=== PATIENT | female | born 1985 | race Caucasian/White ===

== ENCOUNTER 2022-12-08 16:53 | Emergency (ER) | payer OTHER, MEDICAID, SELFPAY ==
[2022-12-08 17:02] VITALS: BP 116/78; PULSE 75; RESP 16; TEMP 36.7; O2SAT 98; BMI 31.9
--- NOTE | 2022-12-08 17:13 | ED_ITS ---
HPI - Female Genitourinary General Chief complaint: Urogenital-Female Stated complaint: UTI Time Seen by Provider: 12/08/22 17:05 Source: patient Mode of arrival: walk-in Limitations: no limitations History of Present Illness HPI Narrative: dysuria began earlier today and the patient is concerned that she might be having an acute UTI. She denied any abdominal pain but had some pain across both flanks that also began today. She complains of feeling tired . No fever or chills. No vomiting or diarrhea. Related Data Home Medications Medication Instructions Recorded Confirmed fluoxetine 40 mg capsule (Prozac) mg 12/08/22 lamotrigine 25 mg tablet mg 12/08/22 Previous Rx's Medication Instructions Recorded ciprofloxacin HCl 500 mg tablet 500 mg PO BID #10 tabs 12/08/22 (Cipro) phenazopyridine 100 mg tablet 100 mg PO TID 6 doses #6 tabs 12/08/22 (Pyridium) Allergies Allergy/AdvReac Type Severity Reaction Status Date / Time No Known Drug Allergies Allergy Verified 12/08/22 17:05 [facility] Social History Smoking status: Never smoker Exam Narrative Exam Narrative: Nurses notes and vital signs reviewed and patient is not hypoxic. afebrile General: Well-appearing and in no apparent distress. Skin: Warm, dry, no pallor noted. No rash. Eye: Pupils are equal, round and EOMI. No scleral icterus. Cardiovascular: Regular Rate and Rhythm without murmur, gallop or rub. Respiratory: No accessory muscle use or respiratory distress. Lungs are clear to auscultation, no wheezing, rales or rhonchi Back: No midline thoracic or lumbar vertebral tenderness. No CVA tenderness GI: Abdomen is soft, non-distended. Normal bowel sounds. No tenderness to palpation. No rebound, guarding, or rigidity noted. Neurological: A&O x4. No cranial nerve dysfunction observed. No truncal ataxia. Moves all extremities. Sensation intact. Psychiatric: Cooperative and interactive. Normal mood and affect. Constitutional Vital Signs - 24 hr 12/08/22 17:02 Temperature 98.0 F Pulse Rate [Monitor] 75 Respiratory Rate 16 Blood Pressure [Right Arm] 116/78 Pulse Oximetry 98 Oxygen Delivery Method Room Air Course Vital Signs Vital signs: Vital Signs Temperature 98.0 F 12/08/22 17:02 Pulse Rate 75 12/08/22 17:02 Respiratory Rate 16 12/08/22 17:02 Blood Pressure 116/78 12/08/22 17:02 Pulse Oximetry 98 12/08/22 17:02 Oxygen Delivery Method Room Air 12/08/22 17:02 Temperature 98.0 F 12/08/22 17:02 Pulse Rate 75 12/08/22 17:02 Respiratory Rate 16 12/08/22 17:02 Blood Pressure 116/78 12/08/22 17:02 Pulse Oximetry 98 12/08/22 17:02 Oxygen Delivery Method Room Air 12/08/22 17:02 MDM - Female Genitourinary MDM Narrative Medical decision making narrative: urine sent for testing. UA revealed acute UTI. Patient placed on cipro and pyridium and encouraged to see her PCP for follow up. Lab Data Attestation: I reviewed the patient's lab results. Labs: Lab Results 12/08/22 Range/Units 17:12 Urine Color Lt. yellow (YELLOW) Urine Clarity Clear (CLEAR) Urine pH 7.0 (5.0-9.0) Ur Specific [place] 1.010 (1.005-1.025) Urine Protein Negative (NEG/TRACE) mg/dL Urine Glucose (UA) Negative (NEGATIVE) mg/dL Urine Ketones Negative (NEGATIVE) mg/dL Urine Occult Blood Negative (NEGATIVE) Urine Nitrite Negative (NEGATIVE) Urine Bilirubin Negative (NEGATIVE) Urine Urobilinogen 0.2 (0.2-1.0) EU/dL Ur Leukocyte Esterase Small A (NEGATIVE) Urine RBC 0-2 (0-2) #/HPF Urine WBC 2-5 A (NONE SEEN) #/HPF Ur Squamous Epith Cells Rare (NONE/RARE) #/LPF Urine Crystals None seen (None Seen) #/HPF Urine Bacteria Trace A (NONE SEEN) #/HPF Urine Casts None seen (NONE SEEN) #/LPF Urine Mucus None seen (NONE SEEN) Ur Culture Indicated? No Urine HCG, Qual Negative (NEGATIVE) Discharge Plan Discharge Chief Complaint: Urogenital-Female Clinical Impression: Urinary tract infection Patient Disposition: Home, Self-Care Time of Disposition Decision: 18:00 Prescriptions / Home Meds: New ciprofloxacin HCl [Cipro] 500 mg tablet 500 mg PO BID Qty: 10 0RF phenazopyridine [Pyridium] 100 mg tablet 100 mg PO TID Qty: 6 0RF No Action fluoxetine [Prozac] 40 mg capsule lamotrigine 25 mg tablet Instructions: Urinary Tract Infection in Women (ED) Stand Alone Forms: Portal Instructions Referrals: KEYONA SERRATO [Primary Care Provider] - 1 week
[2022-12-08 17:23] LABS: Bilirubin Urine NEGATIVE (NEGATIVE); Blood Urine NEGATIVE (NEGATIVE); Clarity Urine CLEAR (CLEAR); Color Urine LT. YELLOW (YELLOW); Glucose Urine UA NEGATIVE (NEGATIVE); Ketones Urine NEGATIVE (NEGATIVE); Leukocyte Esterase Urine SMALL (NEGATIVE); Nitrite Urine NEGATIVE (NEGATIVE); Protein Urine NEGATIVE (NEG/TRACE); Urobilinogen Urine 0.2 EU/dL (0.2-1.0)
[2022-12-08 17:25] LABS: HCG Qualitative Urine* NEGATIVE (NEGATIVE)
[2022-12-08 17:26] LABS: Urine Microscopic Indicated YES
[2022-12-08 17:34] LABS: Bacteria Urine TRACE #/HPF (NONE SEEN); Crystals Seen? None Seen #/HPF (None Seen); Mucus Urine NONE SEEN (NONE SEEN); RBC Urine 0-2 #/HPF (0-2); Squamous Epithelial Cell Urine RARE #/LPF (NONE/RARE)
[2022-12-08 17:35] LABS: Cast Seen? NONE SEEN #/LPF (NONE SEEN); Urine Culture Indicated NO
[2022-12-08 18:24] VITALS: BP 110/78; PULSE 75; RESP 16; O2SAT 100
== END 2022-12-08 18:24 | disposition home or self-care (01) ==
PROVIDERS: Emergency Provider Emergency Medicine; PCP Nurse Practitioner Family
DX: N39.0 Urinary tract infection, site not specified (principal)
CPT/HCPCS: 81003; 81015; 84703; 99283

== ENCOUNTER 2023-09-21 09:24 | Outpatient (OUT) | payer OTHER, MEDICAID, SELFPAY ==
[2023-09-21 09:52] LABS: Basophils Percent Auto 0.4 % (0.2-2.0); Eosinophils Absolute Auto 0.1 10^3/uL (0.0-0.7); Eosinophils Percent Auto 1.4 % (0.9-7.0); Hematocrit 43.4 % (36.0-48.0); Hemoglobin 14.3 g/dL (12.0-16.0); Immature Granulocytes Abs Auto 0.03 10^3/uL (0.00-0.03); Immature Granulocytes Pct Auto 0.4 % (0.0-0.5); Lymphocytes Percent Auto 12.9 % (20.5-60.0); Mean Corpuscular HGB Conc 32.9 g/dL (29.9-35.2); Mean Corpuscular Hemoglobin 29.2 pg (26.7-34.0); Mean Corpuscular Volume 88.8 fL (81.0-99.0); Mean Platelet Volume 11.5 fL (9.5-13.5); Monocytes Absolute Auto 0.9 10^3/uL (0.3-0.8); Monocytes Percent Auto 10.8 % (1.7-12.0); Neutrophils Absolute Auto 5.9 10^3/uL (1.4-6.5); Neutrophils Percent Auto 74.1 % (43.0-75.0); Platelet Count 241 10^3/uL (150-450); Red Blood Count 4.89 10^6/uL (4.20-5.40); Red Cell Distribution Width 11.8 % (11.0-15.0)
[2023-09-21 10:29] LABS: Estimated Average Glucose 100 mg/dL; Glycohemoglobin A1C 5.1 % (4.5-6.2)
[2023-09-21 10:53] LABS: Alanine Aminotransferase 42 U/L (14-59); Albumin Globulin Ratio 0.9; Albumin Level 3.6 g/dL (3.4-5.0); Alkaline Phosphatase 92 U/L (46-116); Anion Gap 11.3; Aspartate Amino Transferase 19 U/L (15-37); BUN Creatinine Ratio 17.1; Bilirubin Total 0.6 mg/dL (0.2-1.0); Calcium 8.9 mg/dL (8.5-10.1); Carbon Dioxide 27.6 mmol/L (21.0-32.0); Chloride 103 mmol/L (98-107); Chol HDL Ratio 4.6; Cholesterol 169 mg/dL (<=200); Estimated GFR (African America >60 (>=60); Estimated GFR (Non-African Ame >60 (>=60); Free T3 2.82 pg/mL (2.18-3.98); Glucose 96 mg/dL (74-106); HDL Cholesterol 37 mg/dL (40-60); Potassium 3.9 mmol/L (3.5-5.1); Sodium 138 mmol/L (136-145); Thyroid Stimulating Hormone 3.245 uIU/mL (0.358-3.740); Total Protein 7.6 g/dL (6.4-8.2); Triglycerides 100 mg/dL (<=150)
[2023-09-22 10:08] LABS: Insulin 18.2 uIU/mL (2.6-24.9)
== END 2023-09-21 09:25 | disposition home or self-care (01) ==
LOC: LAB 09:27
PROVIDERS: PCP Nurse Practitioner Family; Visit Provider Nurse Practitioner Family
DX: Z00.00 Encounter for general adult medical examination without abnormal findings (principal)
CPT/HCPCS: 36415; 80053; 80061; 82306; 83036; 83525; 83540; 84436; 84443; 84481; 85025

== ENCOUNTER 2023-09-27 11:15 | Emergency (ER) | payer MEDICAID, SELFPAY ==
[2023-09-27 11:22] VITALS: BP 139/80; PULSE 82; TEMP 36.7; O2SAT 98; BMI 33.9
--- NOTE | 2023-09-27 11:32 | XR_ITS ---
[facility] [id number] Patient Name: KM WAITE MRN: [id number] date: 1985 Sex: F Assigned Patient Location: ER Current Patient Location: ER Accession/Order Number: [id number] Exam Date: 09/27/2023 12:08 Report Date: 09/27/2023 12:19 At the request of: YANELI LINDSEY Procedure: XR chest 1V EXAM: XR chest 1V at 1203 hours HISTORY: CP COMPARISON: None. TECHNIQUE: AP upright portable chest x-ray FINDINGS: The heart is not enlarged and the vasculature is not distended. No acute infiltrate, effusion or pneumothorax is identified. The osseous structures are grossly intact. XR/XR chest 1V IMPRESSION: No acute infiltrate or evidence of cardiac decompensation. Comparison with a previous study may be helpful in confirming the chronicity of these findings. Electronically authenticated by: HOMERO TAVERAS Date: 09/27/2023 12:19
--- NOTE | 2023-09-27 11:32 | ECG_ITS ---
[facility] Test Date: 2023-09-27 Pat Name: KM WAITE Department: Room: - Gender: Female Dental Technician: : 1985 Requested By: KEYONA SERRATO Order Number: [id number] Reading MD: FELIPE MELARA Measurements Intervals [place] Rate: 86 P: 270 VT: 166 QRS: 67 QRSD: 74 T: 21 QT: 372 QTc: 415 Interpretive Statements 1220 Rapid atrial rhythm 9140 abnormal rhythm ECG No previous ECG available for comparison Electronically Signed On 09-27-2023 23:20:51 EDT by FELIPE MELARA
--- NOTE | 2023-09-27 11:32 | ED.CHESTPAI1 ---
HPI - Chest Pain General Chief Complaint: Chest Pain Stated Complaint: CHEST PAIN Time Seen by Provider: 09/27/23 11:24 Source: patient Mode of arrival: walk-in Limitations: no limitations History of Present Illness HPI narrative: 38-year-old female presents for chest pain. She states she has had this continuously for 4 days and it is in the middle part of her chest. She has been under a great deal of stress recently. No injury or unusual activity. No fever cough or back pain and the pain does not seem to radiate. The pain is moderate. Related Data Allergies Allergy/AdvReac Type Severity Reaction Status Date / Time No Known Drug Allergies Allergy Verified 12/08/22 17:05 Review of Systems ROS Narrative A ten point review of systems is negative except as noted above. PFSH PFSH Social History Smoking status: Never smoker Exam Narrative Exam Narrative: Nurses note and vital signs reviewed and patient is not hypoxic. General: The patient appears well and in no apparent distress. Patient is resting comfortably on cart. Skin: Warm, dry, no pallor noted. There is no rash noted. Head: Normocephalic, atraumatic Eye: Normal conjunctiva, no drainage Ears, Nose, Mouth, and Throat: oral mucosa is moist. Nares patent. Cardiovascular: Regular Rate and Rhythm Respiratory: Patient is in no distress, no accessory muscle use, lungs are clear to auscultation, no wheezing, rales or rhonchi Back: non-tender GI: Soft and nontender Musculoskeletal: The patient has no evidence of calf tenderness, no pitting edema, symmetrical pulses noted bilaterally Neurological: A&O, normal speech Psychiatric: Cooperative Constitutional Vital Signs, click to edit/add: Last Vital Signs Temp 98.1 F 09/27/23 11:22 Pulse 79 09/27/23 12:40 Resp 17 09/27/23 12:40 BP 115/79 09/27/23 12:40 Pulse Ox 96 09/27/23 12:40 O2 Del Method Room Air 09/27/23 11:22 Course Vital Signs Vital signs: Vital Signs Temperature 98.1 F 09/27/23 11:22 Pulse Rate 82 09/27/23 11:22 Respiratory Rate 18 09/27/23 11:22 Blood Pressure 139/80 09/27/23 11:22 Pulse Oximetry 98 09/27/23 11:22 Oxygen Delivery Method Room Air 09/27/23 11:22 Temperature 98.1 F 09/27/23 11:22 Pulse Rate 79 09/27/23 12:40 Respiratory Rate 17 09/27/23 12:40 Blood Pressure 115/79 09/27/23 12:40 Pulse Oximetry 96 09/27/23 12:40 Oxygen Delivery Method Room Air 09/27/23 11:22 MDM - Chest Pain MDM Narrative Medical decision making narrative: Her workup here is negative. My clinical impression is that her symptoms are due to stress and anxiety. This was discussed thoroughly with the patient and she will follow-up with her PCP. Differential Diagnosis Differential diagnosis: Likely pneumothorax, st elevation myocardial infarction, chest pain and other (Anxiety) Lab Data Attestation: I reviewed the patient's lab results. Labs: Lab Results 09/27/23 Range/Units 12:00 WBC 8.1 (4.0-11.0) 10^3/uL RBC 5.01 (4.20-5.40) 10^6/uL Hgb 14.7 (12.0-16.0) g/dL Hct 45.0 (36.0-48.0) % MCV 89.8 (81.0-99.0) fL MCH 29.3 (26.7-34.0) pg MCHC 32.7 (29.9-35.2) g/dL RDW 11.8 (11.0-15.0) % Plt Count 239 (150-450) 10^3/uL MPV 11.5 (9.5-13.5) fL Neut % (Auto) 73.4 (43.0-75.0) % Lymph % (Auto) 14.7 L (20.5-60.0) % [place] % (Auto) 9.3 (1.7-12.0) % Eos % (Auto) 1.7 (0.9-7.0) % Baso % (Auto) 0.4 (0.2-2.0) % Neut # (Auto) 6.0 (1.4-6.5) 10^3/uL Lymph # (Auto) 1.2 (1.2-3.8) 10^3/uL [place] # (Auto) 0.8 (0.3-0.8) 10^3/uL Eos # (Auto) 0.1 (0.0-0.7) 10^3/uL Baso # (Auto) 0.0 (0.0-0.1) 10^3/uL Abs Immat Gran (auto) 0.04 H (0.00-0.03) 10^3/uL Imm/Tot Granulo (auto) 0.5 (0.0-0.5) % Sodium 138 (136-145) mmol/L Potassium 3.7 (3.5-5.1) mmol/L Chloride 103 (98-107) mmol/L Carbon Dioxide 24.3 (21.0-32.0) mmol/L Anion Gap 14.4 BUN 14.0 (7.0-18.0) mg/dL Creatinine 0.90 (0.55-1.02) mg/dL Est GFR ( Amer) >60 (>=60) Est GFR (Non-Af Amer) >60 (>=60) BUN/Creatinine Ratio 15.6 Glucose 98 (74-106) mg/dL Calcium 9.1 (8.5-10.1) mg/dL Troponin I High Sens <4.0 L (4.0-51.3) pg/mL Imaging Data Chest x-ray: Radiologist's impression: ITS Impressions Chest X-Ray 09/27/23 11:32 IMPRESSION: No acute infiltrate or evidence of cardiac decompensation. Comparison with a previous study may be helpful in confirming the chronicity of these findings. Electronically authenticated by: HOMERO TAVERAS Date: 09/27/2023 12:19 ECG Data Attestation: I personally reviewed and interpreted this ECG as follows: (EKG on my interpretation shows normal sinus rhythm with a rate of 86 and no acute findings.) Heart Score History: Slightly/Non-Suspicious ECG: Normal Age: <45 years Risk Factors: No Risk Factors Troponin: <Normal Limit Total Heart Score Recommendations & Risks:: 0 Discharge Plan Discharge Stand Alone Forms: Portal Instructions Chief Complaint: Chest Pain Clinical Impression: Anxiety Patient Disposition: Home, Self-Care Time of Disposition Decision: 12:53 Condition: Good Mode of Transportation: Private Vehicle Print Language: Bahamian Instructions: Anxiety (ED) Referrals: KEYONA SERRATO [Primary Care Provider] - 1 week
[2023-09-27 12:06] LABS: Basophils Percent Auto 0.4 % (0.2-2.0); Eosinophils Absolute Auto 0.1 10^3/uL (0.0-0.7); Eosinophils Percent Auto 1.7 % (0.9-7.0); Hemoglobin 14.7 g/dL (12.0-16.0); Immature Granulocytes Abs Auto 0.04 10^3/uL (0.00-0.03); Immature Granulocytes Pct Auto 0.5 % (0.0-0.5); Lymphocytes Absolute Auto 1.2 10^3/uL (1.2-3.8); Lymphocytes Percent Auto 14.7 % (20.5-60.0); Mean Corpuscular HGB Conc 32.7 g/dL (29.9-35.2); Mean Corpuscular Hemoglobin 29.3 pg (26.7-34.0); Mean Corpuscular Volume 89.8 fL (81.0-99.0); Mean Platelet Volume 11.5 fL (9.5-13.5); Monocytes Absolute Auto 0.8 10^3/uL (0.3-0.8); Monocytes Percent Auto 9.3 % (1.7-12.0); Neutrophils Percent Auto 73.4 % (43.0-75.0); Platelet Count 239 10^3/uL (150-450); Red Blood Count 5.01 10^6/uL (4.20-5.40); Red Cell Distribution Width 11.8 % (11.0-15.0); White Blood Count 8.1 10^3/uL (4.0-11.0)
[2023-09-27 12:28] LABS: Anion Gap 14.4; BUN Creatinine Ratio 15.6; Calcium 9.1 mg/dL (8.5-10.1); Carbon Dioxide 24.3 mmol/L (21.0-32.0); Chloride 103 mmol/L (98-107); Estimated GFR (African America >60 (>=60); Estimated GFR (Non-African Ame >60 (>=60); Glucose 98 mg/dL (74-106); Potassium 3.7 mmol/L (3.5-5.1); Sodium 138 mmol/L (136-145); Troponin I High Sensitivity <4.0 pg/mL (4.0-51.3)
[2023-09-27 12:38] VITALS: PULSE 81; O2SAT 94
[2023-09-27 12:40] VITALS: BP 115/79; PULSE 79; O2SAT 96
== END 2023-09-27 12:57 | disposition home or self-care (01) ==
PROVIDERS: Emergency Provider Emergency Medicine; PCP Nurse Practitioner Family
DX: F41.9 Anxiety disorder, unspecified (principal)
CPT/HCPCS: 36415; 71045; 80048; 84484; 85025; 93005; 99285

== ENCOUNTER 2024-06-03 11:24 | Outpatient (OUT) | payer OTHER, MEDICAID, SELFPAY ==
[2024-06-03 11:51] LABS: Basophils Percent Auto 0.6 % (0.2-2.0); Eosinophils Absolute Auto 0.1 10^3/uL (0.0-0.7); Eosinophils Percent Auto 1.6 % (0.9-7.0); Hematocrit 44.3 % (36.0-48.0); Hemoglobin 14.9 g/dL (12.0-16.0); Immature Granulocytes Abs Auto 0.03 10^3/uL (0.00-0.03); Immature Granulocytes Pct Auto 0.4 % (0.0-0.5); Lymphocytes Absolute Auto 1.2 10^3/uL (1.2-3.8); Lymphocytes Percent Auto 16.5 % (20.5-60.0); Mean Corpuscular HGB Conc 33.6 g/dL (29.9-35.2); Mean Corpuscular Hemoglobin 29.8 pg (26.7-34.0); Mean Corpuscular Volume 88.6 fL (81.0-99.0); Mean Platelet Volume 11.5 fL (9.5-13.5); Monocytes Absolute Auto 0.8 10^3/uL (0.3-0.8); Monocytes Percent Auto 11.1 % (1.7-12.0); Neutrophils Absolute Auto 4.9 10^3/uL (1.4-6.5); Neutrophils Percent Auto 69.8 % (43.0-75.0); Platelet Count 233 10^3/uL (150-450); Red Cell Distribution Width 11.8 % (11.0-15.0)
[2024-06-03 12:02] LABS: Estimated Average Glucose 105 mg/dL; Glycohemoglobin A1C 5.3 % (4.5-6.2)
[2024-06-03 12:35] LABS: Alanine Aminotransferase 38 U/L (14-59); Albumin Globulin Ratio 1.1; Albumin Level 3.9 g/dL (3.4-5.0); Alkaline Phosphatase 94 U/L (46-116); Anion Gap 11.7; Aspartate Amino Transferase 16 U/L (15-37); BUN Creatinine Ratio 16.5; Bilirubin Total 0.6 mg/dL (0.2-1.0); Calcium 9.1 mg/dL (8.5-10.1); Carbon Dioxide 30.7 mmol/L (21.0-32.0); Chloride 103 mmol/L (98-107); Chol HDL Ratio 4.7; Cholesterol 184 mg/dL (<=200); Estimated GFR (African America >60 (>=60 mL/min/1.73m^2); Estimated GFR (Non-African Ame >60 (>=60 mL/min/1.73m^2); Free T3 2.95 pg/mL (2.18-3.98); Globulin 3.4 g/dL; Glucose 94 mg/dL (74-106); HDL Cholesterol 39 mg/dL (40-60); Potassium 4.4 mmol/L (3.5-5.1); Sodium 141 mmol/L (136-145); Thyroid Stimulating Hormone 2.457 uIU/mL (0.358-3.740); Total Protein 7.3 g/dL (6.4-8.2); Triglycerides 97 mg/dL (<=150); VLDL CHOLESTEROL 19.4 mg/dL
[2024-06-04 07:09] LABS: Insulin 22.6 uIU/mL (2.6-24.9)
== END 2024-06-03 11:25 | disposition home or self-care (01) ==
LOC: LAB 11:26
PROVIDERS: PCP Nurse Practitioner Family; Visit Provider Nurse Practitioner Family
DX: E78.5 Hyperlipidemia, unspecified (principal); D64.9 Anemia, unspecified; R73.09 Other abnormal glucose; Z79.899 Other long term (current) drug therapy; R53.83 Other fatigue
CPT/HCPCS: 36415; 80053; 80061; 83036; 83525; 83540; 84436; 84443; 84481; 85025